=== PATIENT | male | born 1980 | race Caucasian/White ===

== ENCOUNTER 2017-06-05 20:48 | Emergency (ER) | payer SELFPAY ==
[2017-06-05 20:58] VITALS: BP 122/83; PULSE 90; TEMP 97.9; BMI 21.2
--- NOTE | 2017-06-05 21:14 | PDOC ---
*Physical Exam - Vital Signs Last Vital Signs Temp Pulse Resp BP Pulse Ox 97.9 F 90 18 122/83 100 06/05/17 20:56 06/05/17 20:56 06/05/17 20:56 06/05/17 20:56 06/05/17 20:56 Medical Decision Making - Medical Decision Making 06/05/17 21:13 I reviewed the case of the mid-level practitioner and was available for consultation while in the emergency department *DC/Admit/Observation/Transfer Diagnosis at time of Disposition: Allergic reaction - Discharge Dispostion Disposition: HOME Condition at time of disposition: Stable - Prescriptions Prescriptions: Diphenhydramine HCl [Benadryl -] 25 mg PO Q6H #12 capsule Epinephrine [Epipen] 0.3 mg IJ ASDIR PRN #1 auto.injct PRN Reason: severe allergic reaction Famotidine [Pepcid] 20 mg PO DAILY #3 tablet Prednisone [Deltasone -] 60 mg PO DAILY #9 tablet - Referrals Referrals: Tiffanie Tate MD [Staff Physician] - - Patient Instructions Printed Discharge Instructions: DI for General Allergic Reactions Additional Instructions: Please take medications as prescribed. Follow up with the sales agent casualty insurance for further testing of what could be causing these reactions. As discussed, if you experience any severe allergic reaction and are unable to breathe or feel as if your throat is closing up, please use the Epipen as directed and immediately go to the nearest ER. If you develop any returning, new or worsening symptoms, please return to the ER. - Post Discharge Activity
[2017-06-05] MEDS ORDERED: DEXAMETHASONE SOD PHOSPHATE 10 MG/1 ML VIAL IVPUSH ONE (21:22)
[2017-06-05] MEDS ORDERED: SODIUM CHLORIDE 0.9% 1000 ML INFUS.BAG IV ONE (21:22)
--- NOTE | 2017-06-05 21:22 | PDOC ---
History of Present Illness - General Chief Complaint: Allergic Reaction Stated Complaint: ALLERGIC REACTION Time Seen by Provider: 06/05/17 20:58 - History of Present Illness Initial Comments: 06/05/17 21:19 CHIEF COMPLAINT: allergic reaction HISTORY OF PRESENT ILLNESS: 36 yo M with no significant PMH presents to ED with allergic reaction. Patient reports he is allergic to apples, peaches, fish, and peanuts, and "any time I touch those things I get a bad allergic reaction." Patient reports developing a rash "after maybe eating, or touching something, I don't know" and "maybe" felt some swelling of the throat and difficulty breathing at home prior to arrival by EMS. Per EMS patient was given 50 mg of Benadryl en route to ED. Patient reports "feeling much better now" and denies any difficulty breathing at this time or any sensation of swelling to mouth, lips, tongue, or neck. No recent travel or sick contacts. PAST MEDICAL HISTORY: Denies past medical history FAMILY HISTORY: Denies SOCIAL HISTORY: Current smoker, half pack daily. Denies alcohol, illicit drug use. SURGICAL HISTORY: Denies ALLERGIES: as per HPI REVIEW OF SYSTEMS General/Constitutional: Denies fever or chills. Denies weakness, weight change. HEENT: Denies swelling to mouth, lips, tongue, neck at this time. Cardiovascular: Denies shortness of breath. Respiratory: Denies cough, wheezing, or hemoptysis. Gastrointestinal: Denies nausea, vomiting, diarrhea. Musculoskeletal: Denies joint or muscle swelling or pain. Denies neck or back pain. Skin: "I had a rash on my body earlier." PHYSICAL EXAM General Appearance: Well-appearing, appropriately dressed. No apparent distress , no intoxication. HEENT: Swollen eyelids b/l. No swelling to tongue, mouth, uvula, lips, neck. EOMI, PERRLA, normal ENT inspection, normal voice, TMs normal, pharynx normal. No conjunctival pallor. No photophobia, scleral icterus. Neck: Supple. Trachea midline. No tenderness, rigidity, carotid bruit, stridor , lymphadenopathy, or thyromegaly. Respiratory/Chest: Lungs CTAB. No shortness of breath, chest tenderness, respiratory distress, accessory muscle use. No crackles, rales, rhonchi, stridor , wheezing, dullness Cardiovascular: RRR. S1, S2. Gastrointestinal/Abdominal: Normal bowel sounds. Abdomen soft, non-distended. No tenderness or rebound tenderness. No organomegaly, pulsatile mass, guarding , hernia, hepatomegaly, splenomegaly. Musculoskeletal/Extremities: Normal inspection. FROM of all extremities, normal capillary refill. Pelvis Stable. No CVA tenderness. No tenderness to extremities, pedal edema, swelling, erythema or deformity. Integumentary: Minimal macular, erythematous rash to abdomen. Appropriate color , dry, warm. No cyanosis, erythema, jaundice or rash Neurologic: school childcare attendant II-XII intact. Fully oriented, alert. Appropriate mood/affect. Motor strength 5/5. No appreciable EOM palsy, facial droop or sensory deficit. Past History - Past Medical History Allergies/Adverse Reactions: Allergies Allergy/AdvReac Type Severity Reaction Status Date / Time No Known Allergies Allergy Verified 06/05/17 22:20 Home Medications: Ambulatory Orders Diphenhydramine HCl [Benadryl -] 25 mg PO Q6H #12 capsule 06/06/17 Epinephrine [Epipen] 0.3 mg IJ ASDIR PRN #1 auto.injct 06/06/17 Famotidine [Pepcid] 20 mg PO DAILY #3 tablet 06/06/17 Prednisone [Deltasone -] 60 mg PO DAILY #9 tablet 06/06/17 - Suicide/Smoking/Psychosocial Hx Smoking History: Never smoked Have you smoked in the past 12 months: No Information on smoking cessation initiated: No Hx Alcohol Use: No Drug/Substance Use Hx: No *Physical Exam - Vital Signs Last Vital Signs Temp Pulse Resp BP Pulse Ox 97.9 F 90 18 122/83 100 06/05/17 20:56 06/05/17 20:56 06/05/17 20:56 06/05/17 20:56 06/05/17 20:56 Medical Decision Making - Medical Decision Making 06/05/17 21:22 36 yo M with no significant PMH presents to ED with allergic reaction. -IVF -Decadron 06/06/17 04:31 patient reassessed after Decadron, swelling to eyelids markedly subsided; patient states he feels better and wants to go home. Epipen, Prednisone, Benadryl, Pepcid rx's sent to pharm. Advised patient to take medication as prescribed. Advised patient of signs and symptoms for return to ED. Patient verbalized understanding and agrees to plan. *DC/Admit/Observation/Transfer Diagnosis at time of Disposition: Allergic reaction Qualifiers: Encounter type: initial encounter Qualified Code(s): T78.40XA - Allergy, unspecified, initial encounter - Discharge Dispostion Disposition: HOME Condition at time of disposition: Stable Admit: No - Prescriptions Prescriptions: Diphenhydramine HCl [Benadryl -] 25 mg PO Q6H #12 capsule Epinephrine [Epipen] 0.3 mg IJ ASDIR PRN #1 auto.injct PRN Reason: severe allergic reaction Famotidine [Pepcid] 20 mg PO DAILY #3 tablet Prednisone [Deltasone -] 60 mg PO DAILY #9 tablet - Referrals Referrals: Tiffanie Tate MD [Staff Physician] - - Patient Instructions Printed Discharge Instructions: DI for General Allergic Reactions Additional Instructions: Please take medications as prescribed. Follow up with the homicide squad lieutenant for further testing of what could be causing these reactions. As discussed, if you experience any severe allergic reaction and are unable to breathe or feel as if your throat is closing up, please use the Epipen as directed and immediately go to the nearest ER. If you develop any returning, new or worsening symptoms, please return to the ER. - Post Discharge Activity
== END 2017-06-05 23:21 | disposition home or self-care (01) ==
LOC: JER 20:48
PROC: 3E0337Z Introduction of Electrolytic and Water Balance Substance into Peripheral Vein, Percutaneous Approach (ICD-10-PCS; principal; 2017-06-05)
PROC: 3E033GC Introduction of Other Therapeutic Substance into Peripheral Vein, Percutaneous Approach (ICD-10-PCS; 2017-06-05)
DX: T78.40XA Allergy, unspecified, initial encounter (principal)
CPT/HCPCS: 99281-25